=== PATIENT | female | born 1955 | race Caucasian/White ===

== ENCOUNTER → 2022-10-16 08:38 | Outpatient (BNVA) | payer MEDICARE, MEDICAID, SELFPAY | PROVIDERS: PCP Internal Medicine; Visit Provider Student in an Organized Health Care Education/Training Program | DX: M47.819 Spondylosis without myelopathy or radiculopathy, site unspecified (principal); Z79.631 Long term (current) use of antimetabolite agent | CPT/HCPCS: 99202 ==

== ENCOUNTER 2023-01-09 07:55 | Outpatient (REF) | payer MEDICARE, MEDICAID, SELFPAY ==
[2023-01-09 10:43] LABS: MANUAL DIFF FLAG NO
[2023-01-09 10:53] LABS: Basophils Absolute Auto 0.1 X10*3/uL (0.0-0.2); Eosinophils Percent Auto 0.4 % (0-4); Hematocrit 38.7 % (37.0-47.0); Hemoglobin 13.1 g/dl (12.0-16.0); Imm Gran Abs Auto 0.01 X10*3/uL (0.00-0.03); Imm Gran Pct Auto 0.2 % (0.0-0.4); Lymphocytes Absolute Auto 1.8 X10*3/uL (1.2-4.9); Lymphocytes Percent Auto 35.2 % (20-40); Mean Corpuscular HGB Conc 33.9 g/dl (31.0-35.0); Mean Corpuscular Hemoglobin 31.8 pg (27.0-33.0); Mean Corpuscular Volume 93.9 fL (80.0-98.0); Mean Platelet Volume 10.2 fL (9.4-12.3); Monocytes Absolute Auto 0.5 X10*3/uL (0.1-1.2); Monocytes Percent Auto 8.9 % (2-11); Neutrophils Absolute Auto 2.7 x10*3/uL (2.0-8.3); Neutrophils Percent Auto 54.3 % (45-73); Platelet Count 258 X10*3/uL (160-400); Red Blood Count 4.12 X10*6/uL (4.20-5.50); Red Cell Distribution Width 13.1 % (11.0-16.0); White Blood Count 5.1 X10*3/uL (4.8-10.8)
[2023-01-09 11:25] LABS: Alanine Aminotransferase 28 U/L (0-31); Albumin Level 4.4 g/dL (3.5-5.0); Alkaline Phosphatase 82 U/L (39-117); Anion Gap 13 (12-20); Aspartate Amino Transferase 26 U/L (5-31); Bilirubin Total 0.9 mg/dL (0.0-1.0); Blood Urea Nitrogen 14 mg/dL (9-16); C Reactive Protein 0.27 mg/dL (< or = 0.50); Calcium 9.6 mg/dL (8.4-10.2); Carbon Dioxide 27 mmol/L (22-29); Chloride 103 mmol/L (96-108); Estimated Glomerular Filt Rate > 60; Glucose Random 141 mg/dL (60-115); Potassium 4.6 mmol/L (3.3-5.1); Sodium 138 mmol/L (135-145); Total Protein 6.7 g/dL (6.5-8.0)
[2023-01-09 11:32] LABS: Erythrocyte Sedimentation Rate 11 MM/HR (0-20)
[2023-01-10 08:39] LABS: HBS Num1 6.57 mIU/mL (0-7.99); HBc Num1 0.07 S/CO (0.00-0.79); HBsAGNum1 0.26 S/CO (0.00-0.99); Hepatitis A Antibody IgM 0.14 Index (0-0.79); Hepatitis B Core Antibody Nonreactive (Nonreactive); Hepatitis B Surface Antigen Negative (Negative); ~HepC Num1 0.09 S/CO (0.00-0.79); ~Hepatitis A Antibody IgM Nonreactive (Nonreactive); ~Hepatitis B Surface Antibody NONREACTIVE (Nonreactive); ~Hepatitis C Antibody Nonreactive (Nonreactive)
[2023-01-11 16:54] LABS: TS Negative Control Passed; TS Panel A 0; TS Panel B 0; TS Positive Control Passed; TSpotTB Negative (Negative)
== END 2023-01-09 07:56 | disposition home or self-care (01) ==
LOC: HO.10HDL 07:55
PROVIDERS: Visit Provider Student in an Organized Health Care Education/Training Program
DX: M47.819 Spondylosis without myelopathy or radiculopathy, site unspecified (principal); Z11.7 Encounter for testing for latent tuberculosis infection; Z79.631 Long term (current) use of antimetabolite agent; Z11.59 Encounter for screening for other viral diseases; Z72.89 Other problems related to lifestyle
CPT/HCPCS: 36415; 80053; 85025; 85652; 86140; 86481; 86704; 86706; 86709; 86803; 87340

== ENCOUNTER → 2023-01-14 08:49 | Outpatient (BNVA) | payer MEDICARE, MEDICAID, SELFPAY | PROVIDERS: PCP Internal Medicine; Visit Provider Student in an Organized Health Care Education/Training Program | DX: M47.819 Spondylosis without myelopathy or radiculopathy, site unspecified (principal); M48.02 Spinal stenosis, cervical region | CPT/HCPCS: 99212 ==

== ENCOUNTER → 2023-01-22 10:48 | Outpatient (BNVA) | payer MEDICARE, MEDICAID, SELFPAY | PROVIDERS: PCP Internal Medicine; Visit Provider Student in an Organized Health Care Education/Training Program | DX: M17.11 Unilateral primary osteoarthritis, right knee (principal) | CPT/HCPCS: 20610; 99212 ==

== ENCOUNTER 2023-05-16 10:07 | Outpatient (AMB) | payer MEDICARE, MEDICAID, SELFPAY ==
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
[2023-05-16 10:12] VITALS: BP 132/92; PULSE 75; TEMP 36; O2SAT 97; BMI 32.1
== END 2023-05-16 11:22 | disposition home or self-care (01) ==
PROVIDERS: PCP Internal Medicine; Visit Provider Student in an Organized Health Care Education/Training Program
DX: M47.819 Spondylosis without myelopathy or radiculopathy, site unspecified (principal); M23.92 Unspecified internal derangement of left knee; M79.7 Fibromyalgia
CPT/HCPCS: 99214

== ENCOUNTER → 2023-05-16 10:07 | Outpatient (BNVA) | payer MEDICARE, MEDICAID, SELFPAY | PROVIDERS: PCP Internal Medicine; Visit Provider Student in an Organized Health Care Education/Training Program | DX: M47.819 Spondylosis without myelopathy or radiculopathy, site unspecified (principal); M23.92 Unspecified internal derangement of left knee; M79.7 Fibromyalgia | CPT/HCPCS: 99212 ==

== ENCOUNTER 2023-07-08 10:22 | Outpatient (AMB) | payer MEDICARE, MEDICAID, SELFPAY ==
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
[2023-07-08 10:31] VITALS: BP 132/74; PULSE 75; TEMP 36.3; O2SAT 98; BMI 31.0
== END 2023-07-08 10:55 | disposition home or self-care (01) ==
PROVIDERS: PCP Internal Medicine; Visit Provider Student in an Organized Health Care Education/Training Program
DX: M47.819 Spondylosis without myelopathy or radiculopathy, site unspecified (principal); M79.7 Fibromyalgia; M17.12 Unilateral primary osteoarthritis, left knee; Z79.631 Long term (current) use of antimetabolite agent; Z13.820 Encounter for screening for osteoporosis
CPT/HCPCS: 99215

== ENCOUNTER → 2023-07-08 10:22 | Outpatient (BNVA) | payer MEDICARE, MEDICAID, SELFPAY | PROVIDERS: PCP Internal Medicine; Visit Provider Student in an Organized Health Care Education/Training Program | DX: M47.819 Spondylosis without myelopathy or radiculopathy, site unspecified (principal); M79.7 Fibromyalgia; M17.12 Unilateral primary osteoarthritis, left knee; Z79.631 Long term (current) use of antimetabolite agent | CPT/HCPCS: 99212 ==

== ENCOUNTER 2023-10-09 10:29 | Outpatient (AMB) | payer MEDICARE, MEDICAID, SELFPAY ==
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
[2023-10-09 10:33] VITALS: BP 122/80; PULSE 86; TEMP 36.1; O2SAT 98
== END 2023-10-09 11:14 | disposition home or self-care (01) ==
PROVIDERS: PCP Internal Medicine; Visit Provider Student in an Organized Health Care Education/Training Program
DX: M47.819 Spondylosis without myelopathy or radiculopathy, site unspecified (principal); M79.7 Fibromyalgia; M17.12 Unilateral primary osteoarthritis, left knee; Z79.631 Long term (current) use of antimetabolite agent; Z13.820 Encounter for screening for osteoporosis; Z71.85 Encounter for immunization safety counseling
CPT/HCPCS: 99215

== ENCOUNTER → 2023-10-09 10:29 | Outpatient (BNVA) | payer MEDICARE, MEDICAID, SELFPAY | PROVIDERS: PCP Internal Medicine; Visit Provider Student in an Organized Health Care Education/Training Program | DX: M47.819 Spondylosis without myelopathy or radiculopathy, site unspecified (principal); M79.7 Fibromyalgia; M17.12 Unilateral primary osteoarthritis, left knee; Z79.631 Long term (current) use of antimetabolite agent; Z13.820 Encounter for screening for osteoporosis; Z71.85 Encounter for immunization safety counseling | CPT/HCPCS: 99212 ==

== ENCOUNTER 2024-01-13 09:33 | Outpatient (REF) | payer MEDICARE, MEDICAID, SELFPAY ==
--- NOTE | ~2024-01-13 | XR_ITS ---
EXAM: X-RAYS BILATERAL HANDS CLINICAL INFORMATION: Spondylosis without myelopathy or radiculopathy, right wrist pain and left hand pain. TECHNIQUE: 4 views of each hand/wrist. COMPARISON: None. FINDINGS: RIGHT HAND/WRIST: Radiopaque marker placed by technologist to indicate area of concern as indicated by patient had ulnar aspect of wrist. Bones are diffusely demineralized. [id number] degenerative changes in the first carpometacarpal joint with joint space narrowing and hypertrophic change. Degenerative changes with hypertrophic change and joint space narrowing in the DIP joints most severe in the second DIP joint with associated soft tissue swelling. LEFT HAND/WRIST: Bones are diffusely demineralized. Severe degenerative changes in the first carpometacarpal joint with joint space narrowing and hypertrophic change. Degenerative changes with hypertrophic change and joint space narrowing in the DIP joints most advanced in the second, third and fourth DIP joints. XR/XR hand wrist LT IMPRESSION: 1. [id number] degenerative changes bilateral first carpometacarpal joints. 2. Degenerative changes bilateral DIP joints most severe in the right second DIP joint with associated soft tissue swelling. 3. Recommend follow up imaging in 10-14 days if fracture is suspected.
--- NOTE | ~2024-01-13 | XR_ITS ---
EXAM: X-RAYS BILATERAL HANDS CLINICAL INFORMATION: Spondylosis without myelopathy or radiculopathy, right wrist pain and left hand pain. TECHNIQUE: 4 views of each hand/wrist. COMPARISON: None. FINDINGS: RIGHT HAND/WRIST: Radiopaque marker placed by technologist to indicate area of concern as indicated by patient had ulnar aspect of wrist. Bones are diffusely demineralized. [id number] degenerative changes in the first carpometacarpal joint with joint space narrowing and hypertrophic change. Degenerative changes with hypertrophic change and joint space narrowing in the DIP joints most severe in the second DIP joint with associated soft tissue swelling. LEFT HAND/WRIST: Bones are diffusely demineralized. Severe degenerative changes in the first carpometacarpal joint with joint space narrowing and hypertrophic change. Degenerative changes with hypertrophic change and joint space narrowing in the DIP joints most advanced in the second, third and fourth DIP joints. XR/XR hand wrist RT IMPRESSION: 1. [id number] degenerative changes bilateral first carpometacarpal joints. 2. Degenerative changes bilateral DIP joints most severe in the right second DIP joint with associated soft tissue swelling. 3. Recommend follow up imaging in 10-14 days if fracture is suspected.
== END 2024-01-13 09:34 | disposition home or self-care (01) ==
LOC: HO.XRAY 09:33
PROVIDERS: PCP Internal Medicine; Visit Provider Student in an Organized Health Care Education/Training Program
DX: M54.9 Dorsalgia, unspecified (principal); M47.819 Spondylosis without myelopathy or radiculopathy, site unspecified; M79.7 Fibromyalgia; M17.12 Unilateral primary osteoarthritis, left knee; Z79.631 Long term (current) use of antimetabolite agent
CPT/HCPCS: 73110; 73130; 99212

== ENCOUNTER 2024-01-13 09:33 | Outpatient (AMB) | payer MEDICARE, MEDICAID, SELFPAY ==
--- NOTE | 2024-01-13 09:34 | A.OFFVIS_ITS ---
Intake Vital Signs 01/13/24 09:38 Height 5 ft 5 in BMI Reason not done Patient refused/unable BP 134/70 Blood Pressure Location Rt brachial Position Sitting Pulse 83 Pulse Source Pulse Oximeter Pulse Oximetry (%) 97 Oxygen Delivery Method Room Air Comment Pt states she is 185 lbs Intake Visit Reasons: ASPA Intake Note: Patient last seen 10/09/23 presents today for follow up and test results. Recreational Vehicle Repairer Required: No Accompanied by: Self / Same As Patient Allergies acetaminophen [From Percocet] Adverse Reaction (Severe, Verified 01/13/24 09:47) Headache oxycodone [From Percocet] Adverse Reaction (Severe, Verified 01/13/24 09:47) Headache Tetanus Vaccines and Toxoid Adverse Reaction (Severe, Verified 01/13/24 09:47) Anaphylaxis citalopram [From Celexa] Adverse Reaction (Intermediate, Verified 01/13/24 09:47) Thrush lisinopril Adverse Reaction (Intermediate, Verified 01/13/24 09:47) Cough ciprofloxacin [From Cipro] Adverse Reaction (Verified 01/13/24 09:47) Thrush Medication List - Last Reconciled 01/13/24 by Shani Reyes MD diclofenac potassium 50 mg PO DAILY PRN docusate sodium 200 mg PO DAILY duloxetine 20 mg PO DAILY epinephrine (EpiPen) 0.3 mg IM Q4H PRN folic acid 3 mg (3 x 1 mg) PO DAILY hydrocodone-acetaminophen 5-325 mg 1 tab PO Q6H PRN leucovorin calcium 10 mg (2 x 5 mg) PO QWEEK levothyroxine 75 mcg PO DAILY methotrexate sodium 20 mg (8 x 2.5 mg) PO QWEEK olmesartan (Benicar) 20 mg PO DAILY omega-3 fatty acids (Super [place]-3) 1,000 mg PO BID omeprazole 20 mg PO BID spironolactone 50 mg PO BID HPI HPI Comments History of Present Illness Details 68 year old female with 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 She states that she has not been doing well recently. She increased her methotrexate to 8 tabs weekly for about a month. She has not felt any improvement. She continues to have intermittent joint pain, usually associated with overuse such as working in the yd. She has been having right wrist pain as well as intermittent pain and swelling of her ankle, pain in the back of her left knee as well as shoulder pain. She states that diclofenac does not help as well as prednisone. Initial history: This is a 67-year-old female with a past medical history of HLA B27 positive spondyloarthropathy presents as a new patient. Her previous mandolin repairer left the practice. Her symptoms started before 2010 with diffuse body pain. The majority of her symptoms were on the right side affecting her right ankle, right hip, collarbone, ribs, shoulders and hand. She was eventually diagnosed with HLA B27 positive spondyloarthropathy in 2010. She was on sulfasalazine but stopped due to allergic reaction. She was also on Humira which worked from sub time then stopped working. She also received 1 Remicade infusion and could not tolerate it. She had been on methotrexate for several years now and symptoms are well controlled. Patient stated she had an injury to her right ankle as a child and since then she had had problems with her right foot. She was evaluated by cork slabs sawyer and had reconstructive surgery of her right foot. She states that the surgery helped for sometime however she is starting to have some worsening deformities of her toes, her toes are turning, states that her right foot is almost always numb PFSH Medical History Osteoarthritis of right knee Hypertension Fibromyalgia, primary Nolan's thyroiditis Spondyloarthropathy Surgical History H/O hand surgery Status post right foot surgery Hx of section Family History Mother Diabetes Father No problems noted. 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 Review of Systems ENT Denies sore throat Musc Reports arthralgias, Reports joint swelling and Reports stiffness Physical Exam Vital Signs: Last Vital Signs Pulse 83 01/13/24 09:38 BP 134/70 01/13/24 09:38 Pulse Ox 97 01/13/24 09:38 Oxygen Delivery Method Room Air 01/13/24 09:38 Const General: cooperative, healthy appearing, comfortable and no acute distress Nutritional Appearance: obese Limitations: no limitations HEENT Head: Yes normocephalic and Yes atraumatic Resp Effort & Inspection: normal respiratory effort and able to speak in complete sentences Auscultation: clear to auscultation bilaterally Cardio Rate: regular rate Rhythm: regular rhythm GI Inspection: No distended Palpation (GI): Soft to palpation and nontender Skin General skin exam: no rashes or lesions noted Extrem Other: left knee pain with flexion, no swelling or warmth Bilateral shoulder stiffness with full abduction Negative rotator cuff provocative maneuvers Tenderness to palpation of the right ulnar styloid, no significant swelling There is pain with range of motion of right wrist Mild soft tissue swelling of Dr. Aspect of right lateral malleolus but no warmth or erythema Assessment & Plan Assessment & Plan (1) Spondyloarthropathy: Comment: +ve HLA b27 Diagnosed 2010 SSZ discontinued due to allergic reaction Was on Humira for some time then had secondary nonresponse MTX for several years Code(s): M47.819 - Spondylosis without myelopathy or radiculopathy, site unspecified Plan: This is a 68-year-old female with a past medical history of HLA B27 positive spondyloarthropathy who presents for follow-up. On methotrexate 20 mg weekly. Patient continues to have intermittent flare-ups affecting multiple joints such as right wrist, right ankle, left knee and both shoulders. Continues to have intermittent swelling. Will need to advance DMARDs. Discussed risks and benefits of Enbrel. Patient agreed to proceed. Will start prior authorization for Enbrel Continue with methotrexate 20 mg once weekly Patient gets recurrent mouth sores when she reduces her Leucovorin to 5 mg weekly. She should stay on leucovorin 10 mg weekly Continue folic acid 3 mg daily Labs before next visit in 3 months Infectious screening: Hepatitis panel and T spot - ve 2022 (2) Fibromyalgia, primary: Code(s): M79.7 - Fibromyalgia Plan: On duloxetine 20 mg daily prescribed by PCP (3) Osteoarthritis of left knee: Code(s): M17.12 - Unilateral primary osteoarthritis, left knee Qualifiers: Osteoarthritis type: primary Qualified Code(s): M17.12 - Unilateral primary osteoarthritis, left knee Plan: Managed by Orthopedics, received steroid injections in the past. Gel injections were considered and knee replacement was discussed. Currently per patient's knee pain is tolerable. 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, intermediate, current use: Code(s): Z79.631 - residential (current) use of antimetabolite agent Plan: Monitor safety labs (5) Screening for osteoporosis: Code(s): Z13.820 - Encounter for screening for osteoporosis Plan: DEXA was done last month but we could not retrieve the report. Plan I spent 46 minutes reviewing patient's chart, evaluating patient, ordering diagnostic workup, counseling patient and documenting in the chart Orders: Orders XR hand wrist LT Today M47.819 - Spondylosis without myelopathy or radiculopathy, site unspecified XR hand wrist RT Today M47.819 - Spondylosis without myelopathy or radiculopathy, site unspecified Complete Blood Count Auto Diff 3 Months M47.819 - Spondylosis without myelopathy or radiculopathy, site unspecified, Z79.631 - residential (current) use of antimetabolite agent Comprehensive Met. Panel 3 Months M47.819 - Spondylosis without myelopathy or radiculopathy, site unspecified, Z79.631 - residential (current) use of antimetabolite agent C Reactive Protein 3 Months M47.819 - Spondylosis without myelopathy or radiculopathy, site unspecified, Z79.631 - residential (current) use of antimetabolite agent Erythrocyte Sedimentation Rate 3 Months M47.819 - Spondylosis without myelopathy or radiculopathy, site unspecified, Z79.631 - proc tech (current) use of antimetabolite agent Coding Level of Care Code Est Pt Level 5 (62264) Diagnoses Spondyloarthropathy M47.819 Fibromyalgia, primary M79.7 Primary osteoarthritis of left knee M17.12 Osteoarthritis type: primary Methotrexate, intermediate, 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
[2024-01-13 09:38] VITALS: BP 134/70; PULSE 83; O2SAT 97
== END 2024-01-13 10:14 | disposition home or self-care (01) ==
LOC: HO.RHE 09:33
PROVIDERS: PCP Internal Medicine; Visit Provider Student in an Organized Health Care Education/Training Program
DX: M45.9 Ankylosing spondylitis of unspecified sites in spine (principal); M79.7 Fibromyalgia; M17.12 Unilateral primary osteoarthritis, left knee; Z79.631 Long term (current) use of antimetabolite agent; Z13.820 Encounter for screening for osteoporosis
CPT/HCPCS: 99215

== ENCOUNTER 2024-03-24 12:47 | Outpatient (AMB) | payer MEDICARE, MEDICAID, SELFPAY ==
[2024-03-24 12:55] VITALS: BP 144/60; PULSE 81; O2SAT 95; BMI 31.4
--- NOTE | 2024-03-24 12:55 | MHC.OFFVIS ---
Vital Signs 03/24/24 12:55 Height 5 ft 5 in Weight 188 lb 7.924 oz BMI 31.4 BP 144/60 H Blood Pressure Location Rt brachial Position Sitting Pulse 81 Pulse Source Pulse Oximeter Pulse Oximetry (%) 95 Oxygen Delivery Method Room Air Intake Visit Reasons: /cm Intake Note: Pt seen today for follow up. Reports she was seen at [facility] thought she was having stroke. She is seeing her PCP tomorrow. Care Team Coordinator Scheduler Required: No Accompanied by: Self / Same As Patient Allergies acetaminophen [From Percocet] Adverse Reaction (Severe, Verified 03/24/24 13:04) Headache oxycodone [From Percocet] Adverse Reaction (Severe, Verified 03/24/24 13:04) Headache Tetanus Vaccines and Toxoid Adverse Reaction (Severe, Verified 03/24/24 13:04) Anaphylaxis citalopram [From Celexa] Adverse Reaction (Intermediate, Verified 03/24/24 13:04) Thrush etanercept [From Enbrel] Adverse Reaction (Intermediate, Verified 03/24/24 16:22) Angioedema lisinopril Adverse Reaction (Intermediate, Verified 03/24/24 13:04) Cough ciprofloxacin [From Cipro] Adverse Reaction (Verified 03/24/24 13:04) Thrush Medication List - Last Reconciled 03/24/24 by Shani Reyes MD diclofenac potassium 50 mg PO TID PRN docusate sodium 200 mg PO DAILY duloxetine 20 mg PO DAILY Enbrel SureClick (etanercept) 50 mg subcut QWEEK NS epinephrine (EpiPen) 0.3 mg IM Q4H PRN folic acid 3 mg (3 x 1 mg) PO DAILY hydrocodone-acetaminophen 5-325 mg 1 tab PO Q6H PRN leucovorin calcium 10 mg (2 x 5 mg) PO QWEEK levothyroxine 75 mcg PO DAILY methotrexate sodium 20 mg (8 x 2.5 mg) PO QWEEK olmesartan (Benicar) 20 mg PO DAILY omega-3 fatty acids (Super [place]-3) 1,000 mg PO BID omeprazole 20 mg PO BID spironolactone 50 mg PO BID HPI Comments Details: 68 year old female with 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 Patient took Enbrel for approximately 1 month and felt so much better with her joints. However she started having multiple symptoms such as epigastric pain, dry mouth, tongue swelling and purple discoloration, palpitations. She called the office and I asked her to discontinue Enbrel. Last week patient went to the emergency room due to abrupt onset of right side of her scalp numbness, she also had an an episode of right hand pallor but purplish discoloration of her fingertips associated with numbness, this rapidly self-resolved, when she presented to the hospital, stroke /TIA was suspected, she was admitted overnight and had a brain MRI and was told it was normal. She was not started on any medication for stroke. She has a follow-up appointment with her PCP tomorrow. She states that she continues to have the scalp numbness. She states that her joints are doing reasonably well as she had bilateral shoulder injection a few weeks ago. She also had left knee gel injection a few weeks ago. She has not been using her diclofenac Initial history: This is a 67-year-old female with a past medical history of HLA B27 positive spondyloarthropathy presents as a new patient. 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 Her symptoms started before 2010 with diffuse body pain. The majority of her symptoms were on the right side affecting her right ankle, right hip, collarbone, ribs, shoulders and hand. She was eventually diagnosed with HLA B27 positive spondyloarthropathy in 2010. She was on sulfasalazine but stopped due to allergic reaction. She was also on Humira which worked from sub time then stopped working. She also received 1 Remicade infusion and could not tolerate it. She had been on methotrexate for several years now and symptoms are well controlled. Patient stated she had an injury to her right ankle as a child and since then she had had problems with her right foot. She was evaluated by roping machine tender and had reconstructive surgery of her right foot. She states that the surgery helped for sometime however she is starting to have some worsening deformities of her toes, her toes are turning, states that her right foot is almost always numb [facility] Medical History Osteoarthritis of right knee Hypertension Fibromyalgia, primary Nolan's thyroiditis Spondyloarthropathy Surgical History H/O hand surgery Status post right foot surgery Hx of section Family History (Updated 03/24/24 @ 16:25 by Shani Reyes MD) Mother Diabetes Father No problems noted. 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 Female Reproductive History Menstrual Total pregnancies: 1 Number of Living Children: 1 Review of Systems Musc Denies arthralgias, Denies joint swelling, Reports numbness and Denies stiffness Neuro Reports numbness Physical Exam Vital Signs: Last Vital Signs Pulse 81 03/24/24 12:55 BP 144/60 H 03/24/24 12:55 Pulse Ox 95 03/24/24 12:55 Oxygen Delivery Method Room Air 03/24/24 12:55 BMI result Body Mass Index 31.4 Const General: cooperative, healthy appearing, comfortable and no acute distress Nutritional Appearance: obese Limitations: no limitations HEENT Head: Yes normocephalic and Yes atraumatic Resp Effort & Inspection: normal respiratory effort and able to speak in complete sentences Auscultation: clear to auscultation bilaterally Cardio Rate: regular rate Rhythm: regular rhythm GI Inspection: No distended Palpation (GI): Soft to palpation and nontender Skin General skin exam: no rashes or lesions noted Extrem Other: Normal nailfold capillaroscopy No active synovitis today Assessment & Plan Assessment & Plan (1) Spondyloarthropathy: Comment: +ve HLA b27 Diagnosed 2010 SSZ discontinued due to allergic reaction Was on Humira for some time then had secondary nonresponse MTX for several years Enbrel 01/2024-DC 02/2024 Code(s): M47.819 - Spondylosis without myelopathy or radiculopathy, site unspecified Category: Medical Plan: This is a 68-year-old female with HLA B27 positive spondyloarthropathy who presents for follow-up. Patient started Enbrel and took it for approximately one-month with improvement however she developed multiple side effects such as epigastric pain, tongue swelling and redness, palpitations. I asked patient to discontinue it. She also presented to the ED due to right scalp numbness. Brain MRI did not show a stroke. She continues to have right scalp numbness. Patient's inflammatory arthritis is well controlled today, likely due to recent bilateral shoulder cortisone injections. Has not been using her diclofenac At this point we will DC TNF inhibitors. Advised patient to get evaluated by a neurologist I believe we should switch to 17 inhibitors such as Taltz. However I would like patient to get evaluated by Neurology 1st Continue with methotrexate 20 mg once weekly Patient gets recurrent mouth sores when she reduces her Leucovorin to 5 mg weekly. She should stay on leucovorin 10 mg weekly Continue folic acid 3 mg daily Labs before next visit in 3 months Infectious screening: Hepatitis panel and T spot - ve 2022 (2) Fibromyalgia, primary: Code(s): M79.7 - Fibromyalgia Category: Medical Plan: On duloxetine 20 mg daily prescribed by PCP (3) Osteoarthritis of left knee: Code(s): M17.12 - Unilateral primary osteoarthritis, left knee Category: Medical Qualifiers: Osteoarthritis type: primary Qualified Code(s): M17.12 - Unilateral primary osteoarthritis, left knee Plan: Managed by Orthopedics, received steroid injections in the past. She recently received gel injections by ortho 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, shelter, current use: Code(s): Z79.631 - terminal manager (current) use of antimetabolite agent Category: Medical Plan: Monitor safety labs (5) Screening for osteoporosis: Code(s): Z13.820 - Encounter for screening for osteoporosis Category: Medical Plan: DEXA 11/2023 showed normal bone density Plan I spent 46 minutes reviewing patient's chart, evaluating patient, ordering diagnostic workup, counseling patient and documenting in the chart Orders: Orders Complete Blood Count Auto Diff 3 Months M47.819 - Spondylosis without myelopathy or radiculopathy, site unspecified, Z79.631 - terminal manager (current) use of antimetabolite agent C Reactive Protein 3 Months M47.819 - Spondylosis without myelopathy or radiculopathy, site unspecified, Z79.631 - terminal manager (current) use of antimetabolite agent Comprehensive Met. Panel 3 Months M47.819 - Spondylosis without myelopathy or radiculopathy, site unspecified, Z79.631 - custodial (current) use of antimetabolite agent Erythrocyte Sedimentation Rate 3 Months M47.819 - Spondylosis without myelopathy or radiculopathy, site unspecified, Z79.631 - terminal manager (current) use of antimetabolite agent Medications: Discontinued Enbrel SureClick (etanercept) Discontinued Reason: Doctor's Order 50 mg subcut QWEEK 4 mL 2RF NS Coding Level of Care Code Est Pt Level 5 (01134) Complex EM visit Add On G2211 Diagnoses Spondyloarthropathy M47.819 Fibromyalgia, primary M79.7 Primary osteoarthritis of left knee M17.12 Osteoarthritis type: primary Methotrexate, rodent exterminator, 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
== END 2024-03-24 13:30 | disposition home or self-care (01) ==
PROVIDERS: PCP Internal Medicine; Visit Provider Student in an Organized Health Care Education/Training Program
DX: M47.819 Spondylosis without myelopathy or radiculopathy, site unspecified (principal); M79.7 Fibromyalgia; M17.12 Unilateral primary osteoarthritis, left knee; Z79.631 Long term (current) use of antimetabolite agent; Z13.820 Encounter for screening for osteoporosis
CPT/HCPCS: 99215; G2211

== ENCOUNTER → 2024-03-24 12:47 | Outpatient (BNVA) | payer MEDICARE, MEDICAID, SELFPAY | PROVIDERS: PCP Internal Medicine; Visit Provider Student in an Organized Health Care Education/Training Program | DX: M47.819 Spondylosis without myelopathy or radiculopathy, site unspecified (principal); M79.7 Fibromyalgia; M17.12 Unilateral primary osteoarthritis, left knee; Z79.631 Long term (current) use of antimetabolite agent | CPT/HCPCS: 99212 ==

== ENCOUNTER 2024-06-23 07:49 | Outpatient (AMB) | payer MEDICARE, MEDICAID, SELFPAY ==
--- NOTE | 2024-06-23 07:54 | MHC.OFFVIS ---
Vital Signs 06/23/24 07:59 Height 5 ft 5 in Weight 197 lb 5.019 oz BMI 32.8 BP 120/80 Blood Pressure Location Rt brachial Position Sitting Pulse 87 Pulse Source Pulse Oximeter Pulse Oximetry (%) 98 Oxygen Delivery Method Room Air Intake Visit Reasons: Intake Note: Patient presents for . Allergies acetaminophen [From Percocet] Adverse Reaction (Severe, Verified 06/23/24 07:58) Headache oxycodone [From Percocet] Adverse Reaction (Severe, Verified 06/23/24 07:58) Headache Tetanus Vaccines and Toxoid Adverse Reaction (Severe, Verified 06/23/24 07:58) Anaphylaxis citalopram [From Celexa] Adverse Reaction (Intermediate, Verified 06/23/24 07:58) Thrush etanercept [From Enbrel] Adverse Reaction (Intermediate, Verified 06/23/24 07:58) Angioedema lisinopril Adverse Reaction (Intermediate, Verified 06/23/24 07:58) Cough ciprofloxacin [From Cipro] Adverse Reaction (Verified 06/23/24 07:58) Thrush Medication List - Last Reconciled 06/23/24 by Shani Reyes MD Cosentyx Pen (secukinumab) 150 mg subcut Q4W NS diclofenac potassium 50 mg PO TID PRN docusate sodium 200 mg PO DAILY duloxetine 20 mg PO DAILY epinephrine (EpiPen) 0.3 mg IM Q4H PRN folic acid 3 mg (3 x 1 mg) PO DAILY hydrocodone-acetaminophen 5-325 mg 1 tab PO Q6H PRN leucovorin calcium 10 mg (2 x 5 mg) PO QWEEK levothyroxine 75 mcg PO DAILY methotrexate sodium 20 mg (8 x 2.5 mg) PO QWEEK olmesartan (Benicar) 20 mg PO DAILY omega-3 fatty acids (Super [place]-3) 1,000 mg PO BID omeprazole 20 mg PO BID spironolactone 50 mg PO BID HPI Comments Details: 68 year old female with 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 She started the loading dose of Cosentyx about a month ago. She has not had any side effects. She has not noticed any improvement. She remains on methotrexate 20 mg weekly. She has been having left knee pain as well as bilateral shoulder pain. 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 She had a gel shot in her left knee in February and states that it was helpful. Her shoulders are getting worse and she will be going to see her orthopedist soon for an injection. Initial history: This is a 67-year-old female with a past medical history of HLA B27 positive spondyloarthropathy presents as a new patient. Her previous review coordinator left the practice. Her symptoms started before 2010 with diffuse body pain. The majority of her symptoms were on the right side affecting her right ankle, right hip, collarbone, ribs, shoulders and hand. She was eventually diagnosed with HLA B27 positive spondyloarthropathy in 2010. She was on sulfasalazine but stopped due to allergic reaction. She was also on Humira which worked from sub time then stopped working. She also received 1 Remicade infusion and could not tolerate it. She had been on methotrexate for several years now and symptoms are well controlled. Patient stated she had an injury to her right ankle as a child and since then she had had problems with her right foot. She was evaluated by registration officer and had reconstructive surgery of her right foot. She states that the surgery helped for sometime however she is starting to have some worsening deformities of her toes, her toes are turning, states that her right foot is almost always numb [facility] Medical History Osteoarthritis of right knee Hypertension Fibromyalgia, primary Nolan's thyroiditis Spondyloarthropathy Surgical History H/O hand surgery Status post right foot surgery Hx of section Family History Mother Diabetes Father No problems noted. 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 Female Reproductive History Menstrual Total pregnancies: 1 Number of Living Children: 1 Review of Systems Musc Reports arthralgias, Denies joint swelling, Reports limited range of motion and Reports stiffness Physical Exam Vital Signs: Last Vital Signs Pulse 87 06/23/24 07:59 BP 120/80 06/23/24 07:59 Pulse Ox 98 06/23/24 07:59 Oxygen Delivery Method Room Air 06/23/24 07:59 BMI result Body Mass Index 32.8 Const General: cooperative, healthy appearing, comfortable and no acute distress Nutritional Appearance: obese Limitations: no limitations HEENT Head: Yes normocephalic and Yes atraumatic Resp Effort & Inspection: normal respiratory effort and able to speak in complete sentences Auscultation: clear to auscultation bilaterally Cardio Rate: regular rate Rhythm: regular rhythm GI Inspection: No distended Palpation (GI): Soft to palpation and nontender Skin General skin exam: no rashes or lesions noted Extrem Other: Able to fully abduct her shoulder but with some stiffness Bilateral shoulder crepitus Negative empty can test bilaterally Negative Speed's test bilaterally Normal nailfold capillaroscopy No active synovitis today Results Reviewed Results Reviewed: 0 Assessment & Plan Assessment & Plan (1) Spondyloarthropathy: Comment: +ve HLA b27 Diagnosed 2010 SSZ discontinued due to allergic reaction Was on Humira for some time then had secondary nonresponse MTX for several years Enbrel 01/2024-DC 02/2024 Angioedema Cosentyx 04/2024 Code(s): M47.819 - Spondylosis without myelopathy or radiculopathy, site unspecified Category: Medical Plan: This is a 68-year-old female with HLA B27 positive spondyloarthropathy who presents for follow-up. She is on methotrexate 20 mg weekly and Cosentyx started last month. She continues to complain of multiple joint pain especially her shoulders and her left knee. Today her symptoms are rather consistent with degenerative arthritis. Continue with methotrexate 20 mg once weekly Continue with Cosentyx She should stay on leucovorin 10 mg weekly Continue folic acid 3 mg daily Labs before next visit in 4 months Follow-up with orthopedist for shoulder osteoarthritis and knee osteoarthritis Infectious screening: Hepatitis panel and T spot - ve 2022 (2) Fibromyalgia, primary: Code(s): M79.7 - Fibromyalgia Category: Medical Plan: On duloxetine 20 mg daily prescribed by PCP (3) Osteoarthritis of left knee: Code(s): M17.12 - Unilateral primary osteoarthritis, left knee Category: Medical Qualifiers: Osteoarthritis type: primary Qualified Code(s): M17.12 - Unilateral primary osteoarthritis, left knee Plan: Managed by Orthopedics, received steroid injections in the past. received gel injections 02/2024 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, nursing home, current use: Code(s): Z79.631 - watermelon harvesting supervisor (current) use of antimetabolite agent Category: Medical Plan: Monitor safety labs (5) Screening for osteoporosis: Code(s): Z13.820 - Encounter for screening for osteoporosis Category: Medical Plan: DEXA 11/2023 showed normal bone density Plan I spent 46 minutes reviewing patient's chart, evaluating patient, ordering diagnostic workup, counseling patient and documenting in the chart Orders: Orders Erythrocyte Sedimentation Rate 3 Months M47.819 - Spondylosis without myelopathy or radiculopathy, site unspecified, Z79.631 - watermelon harvesting supervisor (current) use of antimetabolite agent Comprehensive Met. Panel 4 Months M47.819 - Spondylosis without myelopathy or radiculopathy, site unspecified, Z79.631 - watermelon harvesting supervisor (current) use of antimetabolite agent Complete Blood Count Auto Diff 3 Months M47.819 - Spondylosis without myelopathy or radiculopathy, site unspecified, Z79.631 - watermelon harvesting supervisor (current) use of antimetabolite agent Comprehensive Met. Panel 3 Months M47.819 - Spondylosis without myelopathy or radiculopathy, site unspecified, Z79.631 - assisted (current) use of antimetabolite agent C Reactive Protein 3 Months M47.819 - Spondylosis without myelopathy or radiculopathy, site unspecified, Z79.631 - watermelon harvesting supervisor (current) use of antimetabolite agent Complete Blood Count Auto Diff 4 Months M47.819 - Spondylosis without myelopathy or radiculopathy, site unspecified, Z79.631 - assisted (current) use of antimetabolite agent C Reactive Protein 4 Months M47.819 - Spondylosis without myelopathy or radiculopathy, site unspecified, Z79.631 - assisted (current) use of antimetabolite agent Erythrocyte Sedimentation Rate 4 Months M47.819 - Spondylosis without myelopathy or radiculopathy, site unspecified, Z79.631 - assisted (current) use of antimetabolite agent Coding Level of Care Code Est Pt Level 5 (26293) Complex EM visit Add On G2211 Diagnoses Spondyloarthropathy M47.819 Fibromyalgia, primary M79.7 Primary osteoarthritis of left knee M17.12 Osteoarthritis type: primary Methotrexate, nursing home, 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
[2024-06-23 07:59] VITALS: BP 120/80; PULSE 87; O2SAT 98; BMI 32.8
== END 2024-06-23 08:39 | disposition home or self-care (01) ==
PROVIDERS: PCP Internal Medicine; Visit Provider Student in an Organized Health Care Education/Training Program
DX: M47.819 Spondylosis without myelopathy or radiculopathy, site unspecified (principal); M79.7 Fibromyalgia; M17.12 Unilateral primary osteoarthritis, left knee; Z79.631 Long term (current) use of antimetabolite agent; Z13.820 Encounter for screening for osteoporosis
CPT/HCPCS: 99215; G2211

== ENCOUNTER → 2024-06-23 07:49 | Outpatient (BNVA) | payer MEDICARE, MEDICAID, SELFPAY | PROVIDERS: PCP Internal Medicine; Visit Provider Student in an Organized Health Care Education/Training Program | DX: Z13.820 Encounter for screening for osteoporosis (principal); M47.819 Spondylosis without myelopathy or radiculopathy, site unspecified; M17.12 Unilateral primary osteoarthritis, left knee; M79.7 Fibromyalgia; Z79.631 Long term (current) use of antimetabolite agent | CPT/HCPCS: 99212 ==

== ENCOUNTER 2024-10-06 12:37 | Outpatient (AMB) | payer MEDICARE, MEDICAID, SELFPAY ==
--- NOTE | 2024-10-06 12:56 | A.OFFVIS_ITS ---
Vital Signs 10/06/24 12:59 Height 5 ft 3 in Weight 200 lb BMI 35.4 BP 122/70 Blood Pressure Location Rt brachial Position Sitting Pulse 99 Pulse Source Pulse Oximeter Pulse Oximetry (%) 92 Oxygen Delivery Method Room Air Intake Visit Reasons: Intake Note: Patient presents for . Allergies acetaminophen [From Percocet] Adverse Reaction (Severe, Verified 10/06/24 12:59) Headache oxycodone [From Percocet] Adverse Reaction (Severe, Verified 10/06/24 12:59) Headache Tetanus Vaccines and Toxoid Adverse Reaction (Severe, Verified 10/06/24 12:59) Anaphylaxis citalopram [From Celexa] Adverse Reaction (Intermediate, Verified 10/06/24 12:59) Thrush etanercept [From Enbrel] Adverse Reaction (Intermediate, Verified 10/06/24 12:59) Angioedema lisinopril Adverse Reaction (Intermediate, Verified 10/06/24 12:59) Cough secukinumab [From Cosentyx] Adverse Reaction (Intermediate, Verified 10/06/24 13:35) Diarrhea ciprofloxacin [From Cipro] Adverse Reaction (Verified 10/06/24 12:59) Thrush Medication List - Last Reconciled 10/06/24 by Shani Reyes MD diclofenac potassium 50 mg PO TID PRN docusate sodium 200 mg PO DAILY duloxetine 20 mg PO DAILY epinephrine (EpiPen) 0.3 mg IM Q4H PRN folic acid 3 mg (3 x 1 mg) PO DAILY hydrocodone-acetaminophen 5-325 mg 1 tab PO Q6H PRN leucovorin calcium 10 mg (2 x 5 mg) PO QWEEK levothyroxine 75 mcg PO DAILY methotrexate sodium 20 mg (8 x 2.5 mg) PO QWEEK olmesartan (Benicar) 20 mg PO DAILY omega-3 fatty acids (Super [place]-3) 1,000 mg PO BID omeprazole 20 mg PO BID spironolactone 50 mg PO BID HPI Comments Details: 69 year old female with 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 She remains on methotrexate, Cosentyx was started 3-4 months ago. She states that since Cosentyx was started she has been feeling better, she no longer has the generalized pain and morning stiffness. She has noticed however that that she gets some mouth sores as well as significant diarrhea that lasts 3-4 days after the injection. She does not leave her house in those days. The day before , she fell outside her home while shoveling snow. She hit her wrists, her back and shoulder. Since then she has been having significant pain. She does not believe she fractured anything. Since that fall she has been having diffuse pain. Initial history: This is a 67-year-old female with a past medical history of HLA B27 positive spondyloarthropathy presents as a new patient. Her previous geoscience specialist left the practice. Her symptoms started before 2010 with diffuse body pain. The majority of her symptoms were on the right side affecting her right ankle, right hip, collarbone, ribs, shoulders and hand. She was eventually diagnosed with HLA B27 positive spondyloarthropathy in 2010. She was on sulfasalazine but stopped due to allergic reaction. She was also on Humira which worked from sub time then stopped working. She also received 1 Remicade infusion and could not tolerate it. She had been on methotrexate for several years now and symptoms are well controlled. Patient stated she had an injury to her right ankle as a child and since then she had had problems with her right foot. She was evaluated by steel division supervisor and had reconstructive surgery of her right foot. She states that the surgery helped for sometime however she is starting to have some worsening deformities of her toes, her toes are turning, states that her right foot is almost always numb PFSH Medical History Osteoarthritis of right knee Hypertension Fibromyalgia, primary Nolan's thyroiditis Spondyloarthropathy Surgical History H/O hand surgery Status post right foot surgery Hx of section Family History Mother Diabetes Father No problems noted. 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 Female Reproductive History Menstrual Total pregnancies: 1 Number of Living Children: 1 Review of Systems [facility] Reports arthralgias, Denies joint swelling, Reports limited range of motion and Reports stiffness Physical Exam Vital Signs: Last Vital Signs Pulse 99 10/06/24 12:59 BP 122/70 10/06/24 12:59 Pulse Ox 92 10/06/24 12:59 Oxygen Delivery Method Room Air 10/06/24 12:59 BMI result Body Mass Index 35.4 Const General: cooperative, healthy appearing, comfortable and no acute distress Nutritional Appearance: obese Limitations: no limitations HEENT Head: Yes normocephalic and Yes atraumatic Resp Effort & Inspection: normal respiratory effort and able to speak in complete sentences Auscultation: clear to auscultation bilaterally Cardio Rate: regular rate Rhythm: regular rhythm GI Inspection: No distended Palpation (GI): Soft to palpation and nontender Skin General skin exam: no rashes or lesions noted Extrem Other: Unable to fully abduct her shoulders due to significant stiffness Bilateral shoulder crepitus Bilateral deltoid and arm muscle tenderness Significantly limited left knee flexion Normal nailfold capillaroscopy No active synovitis today Assessment & Plan Assessment & Plan (1) Spondyloarthropathy: Comment: +ve HLA b27 Diagnosed 2010 SSZ discontinued due to allergic reaction Was on Humira for some time then had secondary nonresponse MTX for several years Enbrel 01/2024-DC 02/2024 Angioedema Cosentyx 04/2024 effective (discontinued 09/2024 due to significant diarrhea & + family hx of Crohn's) Code(s): M47.819 - Spondylosis without myelopathy or radiculopathy, site unspecified Category: Medical Plan: This is a 69-year-old female with HLA B27 positive spondyloarthropathy who presents for follow-up. She is on methotrexate 20 mg weekly and Cosentyx injections. Per patient she feels that Cosentyx significantly helped her generalized pain and morning stiffness however she has been having diarrhea that lasts 4 days after every injection. I think given new onset diarrhea coupled with patient's daughter with Crohn's I will discontinue Cosentyx for fear of developing inflammatory bowel disease CLAIRE inhibitors can be discussed if needed Continue with methotrexate 20 mg once weekly She should stay on leucovorin 10 mg weekly Continue folic acid 3 mg daily Labs before next visit in 4 months Follow-up with orthopedist for shoulder osteoarthritis and knee osteoarthritis Infectious screening: Hepatitis panel and T spot - ve 2022 (2) Fibromyalgia, primary: Code(s): M79.7 - Fibromyalgia Category: Medical Plan: Recently evaluated by sports Medicine advised to increase her duloxetine to 40 mg a day. Patient also believes that she may have slipped rib syndrome, advised patient to discuss with sports medicine (3) Osteoarthritis of left knee: Code(s): M17.12 - Unilateral primary osteoarthritis, left knee Category: Medical Qualifiers: Osteoarthritis type: primary Qualified Code(s): M17.12 - Unilateral primary osteoarthritis, left knee Plan: Managed by Orthopedics, received steroid injections in the past. received gel injections 02/2024, planned for another set of gel injections next month 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, retirement, current use: Code(s): Z79.631 - nursing home (current) use of antimetabolite agent Category: Medical Plan: Monitor safety labs (5) Screening for osteoporosis: Code(s): Z13.820 - Encounter for screening for osteoporosis Category: Medical Plan: DEXA 11/2023 showed normal bone density Plan I spent 46 minutes reviewing patient's chart, evaluating patient, ordering diagnostic workup, counseling patient and documenting in the chart Orders: Orders Complete Blood Count Auto Diff 4 Months M47.819 - Spondylosis without myelopathy or radiculopathy, site unspecified, Z79.631 - nursing home (current) use of antimetabolite agent Comprehensive Met. Panel 4 Months M47.819 - Spondylosis without myelopathy or radiculopathy, site unspecified, Z79.631 - nursing home (current) use of antimetabolite agent Erythrocyte Sedimentation Rate 4 Months M47.819 - Spondylosis without my elopathy or radiculopathy, site unspecified, Z79.631 - nursing home (current) use of antimetabolite agent C Reactive Protein 4 Months M47.819 - Spondylosis without myelopathy or radiculopathy, site unspecified, Z79.631 - exterminator helper termite (current) use of antimetabolite agent Medications: Refilled leucovorin calcium 10 mg (2 x 5 mg) PO QWEEK 24 tabs 1RF folic acid 3 mg (3 x 1 mg) PO DAILY 90 tabs 3RF Discontinued secukinumab (Cosentyx Pen) Discontinued Reason: Doctor's Order 150 mg subcut Q4W 1 mL 3RF M47.819 - Spondylosis without myelopathy or radiculopathy, site unspecified Coding Level of Care Code Est Pt Level 4 (74319) Complex EM visit Add On G2211 Diagnoses Spondyloarthropathy M47.819 Fibromyalgia, primary M79.7 Primary osteoarthritis of left knee M17.12 Osteoarthritis type: primary Methotrexate, retirement, 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
[2024-10-06 12:59] VITALS: BP 122/70; PULSE 99; O2SAT 92; BMI 35.4
== END 2024-10-06 13:37 | disposition home or self-care (01) ==
PROVIDERS: PCP Internal Medicine; Visit Provider Student in an Organized Health Care Education/Training Program
DX: M47.819 Spondylosis without myelopathy or radiculopathy, site unspecified (principal); M79.7 Fibromyalgia; M17.12 Unilateral primary osteoarthritis, left knee; Z79.631 Long term (current) use of antimetabolite agent; Z13.820 Encounter for screening for osteoporosis
CPT/HCPCS: 99214; G2211

== ENCOUNTER → 2024-10-06 12:37 | Outpatient (BNVA) | payer MEDICARE, MEDICAID, SELFPAY | PROVIDERS: PCP Internal Medicine; Visit Provider Student in an Organized Health Care Education/Training Program | DX: M47.819 Spondylosis without myelopathy or radiculopathy, site unspecified (principal); M79.7 Fibromyalgia; M17.12 Unilateral primary osteoarthritis, left knee; Z79.631 Long term (current) use of antimetabolite agent; Z13.820 Encounter for screening for osteoporosis | CPT/HCPCS: 99212 ==

== ENCOUNTER 2025-02-24 08:46 | Outpatient (AMB) | payer MEDICARE, MEDICAID, SELFPAY ==
--- OUTSIDE RECORDS SUMMARY | 2025-02-24 09:00 | XMS_ITS | Clinical Summary ---
Author Organization [facility] [place] [address] Care Team Providers Care Worker'S Compensation Claims Examiner Name Role Phone Anne Moreira MD Primary Care Provider [phone] Social History Tobacco Use Types Packs/Day Years Used Date Smoking Tobacco: Never Assessed Comments Unknown Sex and Gender Information Value Date Recorded Sex Assigned at Not on file Legal Sex Female 6:51 AM EST Gender Identity Not on file Sexual Orientation Not on file Plan of Treatment Health Maintenance Due Date Last Done Comments CT Colonography 1953 Colonoscopy 1953 Colorectal Cancer Screening 1953 FIT DNA 1953 FIT 1953 Sigmoidoscopy (10 year) with FIT yearly 1953 Sigmoidoscopy 1953 Hepatitis C Screening 1971 Tetanus/Diphtheria/Pertussis Vaccines (1 - Tdap) 1972 Breast Cancer Share Decision Needed 1993 Breast Cancer screening 1993 Pneumoccocal Vaccine: 50+ (1 of 1 - PCV) 2003 Zoster vaccine (1 of 2) 2003 Advance Directive 2008 Bone Density Scan 2018 Covid-19 Vaccine (3 season) 2024, 05/25/2021 Influenza (Flu) vaccine (1 o f 1 - Influenza standard series) 05/30/2024 Care Teams Worker'S Compensation Claims Examiner Relationship Specialty Start Date End Date Anne Moreira MD [address] [place] [address], [address] [place] [address] PCP - General 08/21/10
--- NOTE | 2025-02-24 09:02 | A.OFFVIS_ITS ---
Vital Signs 02/24/25 09:09 Height 5 ft 3 in Weight 197 lb 1.492 oz BMI 34.9 BP 124/90 H Blood Pressure Location Lt brachial Position Sitting Pulse 74 Pulse Source Pulse Oximeter Pulse Oximetry (%) 98 Oxygen Delivery Method Room Air Intake Visit Reasons: Intake Note: Patient presents for follow up. Allergies acetaminophen [From Percocet] Adverse Reaction (Severe, Verified 02/24/25 09:08) Headache oxycodone [From Percocet] Adverse Reaction (Severe, Verified 02/24/25 09:08) Headache Tetanus Vaccines and Toxoid Adverse Reaction (Severe, Verified 02/24/25 09:08) Anaphylaxis citalopram [From Celexa] Adverse Reaction (Intermediate, Verified 02/24/25 09:08) Thrush etanercept [From Enbrel] Adverse Reaction (Intermediate, Verified 02/24/25 09:08) Angioedema lisinopril Adverse Reaction (Intermediate, Verified 02/24/25 09:08) Cough secukinumab [From Cosentyx] Adverse Reaction (Intermediate, Verified 02/24/25 09:08) Diarrhea ciprofloxacin [From Cipro] Adverse Reaction (Verified 02/24/25 09:08) Thrush Medication List - Last Reconciled 02/24/25 by Lorri Yanes MD diclofenac potassium 50 mg PO TID PRN docusate sodium 200 mg PO DAILY epinephrine (EpiPen) 0.3 mg IM Q4H PRN folic acid 3 mg (3 x 1 mg) PO DAILY hydrocodone-acetaminophen 5-325 mg 1 tab PO Q6H PRN leucovorin calcium 10 mg (2 x 5 mg) PO QWEEK levothyroxine 75 mcg PO DAILY methotrexate sodium 20 mg (8 x 2.5 mg) PO QWEEK 90 days olmesartan (Benicar) 20 mg PO DAILY omega-3 fatty acids (Super [place]-3) 1,000 mg PO BID omeprazole 20 mg PO BID spironolactone 50 mg PO BID HPI Comments Details: Patient is a 69-year-old female with hypothyroidism, GERD, polyarticular osteoarthritis, and HLA B27 positive ankylosing spondylitis here today for follow up Interval History: Patient last seen 10/06/[address] Reyes. At that time she was following up for her HLA B27 positive spondyloarthropathy. She was on methotrexate and r ecently started Cosentyx. On this regimen she noted improvement in her symptoms including decreased generalized pain and morning stiffness. Unfortunately she fell about a month prior to that appointment and has been having significant diffuse pain since then. The Cosentyx was discontinued due to diarrhea 3 days after injections and her family history of Crohn's disease. Today, She states she is doing well on the methotrexate monotherapy Does note that she feels extra achy the day after a strenous day working on her property Rheumatologic History: Initial history: This is a 67-year-old female with a past medical history of HLA B27 positive spondyloarthropathy presents as a new patient. Her previous staff physical therapy assistant left the practice. Her symptoms started before 2010 with diffuse body pain. The majority of her symptoms were on the right side affecting her right ankle, right hip, collarbone, ribs, shoulders and hand. She was eventually diagnosed with HLA B27 positive spondyloarthropathy in 2010. She was on sulfasalazine but stopped due to allergic reaction. She was also on [employer] which worked from sub time then stopped working. She also received 1 Remicade infusion and could not tolerate it. She had been on methotrexate for several years now and symptoms are well controlled. Patient stated she had an injury to her right ankle as a child and since then she had had problems with her right foot. She was evaluated by livestock broker and had reconstructive surgery of her right foot. She states that the surgery helped for sometime however she is starting to have some worsening deformities of her toes, her toes are turning, states that her right foot is almost always numb Current Rheumatology Medication(s): Methotrexate 20mg once weekly Folic acid 3mg daily Leucovorin 10mg weekly [facility] Medical History Osteoarthritis of right knee Hypertension Fibromyalgia, primary Nolan's thyroiditis Spondyloarthropathy Surgical History H/O hand surgery Status post right foot surgery Hx of section Family History Mother Diabetes Father No problems noted. 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 Review of Systems Const Details: Review of Systems Constitutional: Denies fever, chills, weight loss ENT: Denies vision changes, eye pain or eye redness, dental caries, dry mouth GI: Denies nausea, vomiting, diarrhea, abdominal pain, change in BM Pulm: Denies SOB, PINO, hemoptysis, wheezing Cards: Denies chest pain, palpitations Skin: Denies Raynaud's, rash, nail changes, photosensitivity, OYSTER OPENER: Denies headaches, weakness, paresthesias, recurrent falls MSK: as per HPI All other systems reviewed and are unremarkable except noted above Physical Exam Vital Signs: Last Vital Signs Pulse 74 02/24/25 09:09 BP 124/90 H 02/24/25 09:09 Pulse Ox 98 02/24/25 09:09 Oxygen Delivery Method Room Air 02/24/25 09:09 BMI result Body Mass Index 34.9 Vital signs reviewed Physical Examination CONSTITUITIONAL Patient alert and cooperative. Well appearing and in no apparent painful distress HEENT Conjunctiva and sclera clear. ?Pupils equal round and reactive to light. ?No lymphadenopathy. ? CHEST/RESPIRATORY SYSTEM Normal respiratory effort and able to speak in complete sentences. ?Clear to auscultation bilaterally. ?No crackles, rales, rhonchi, wheezes heard. CARDIAC SYSTEM Regular rate and rhythm. ?S1 and S2 heard no murmurs. ?Radial pulses intact bilaterally MSK Hands: ?Able to make a fist. No synovitis noted to the MCPs, PIPs or DIPs. ?No tenderness to palpation of these joints. No deformities noted. ? Wrists: ?Full range of motion at the wrists without pain. ?No tenderness to palpation or synovitis noted to the wrists. Elbows: Full range of motion without pain. No tenderness, weakness, swelling, increased warmth or erythema. Shoulders: Full range of active range of motion without pain. No tenderness, weakness, swelling, increased warmth or erythema. Hips: Full range of motion without pain. Hip bursa: No tenderness to palpation Knees: ?Full range of motion. ?No tenderness, swelling, increased warmth or erythema.?No effusion or crepitations Ankles: Full range of motion. ?No tenderness, swelling, increased warmth or erythema.? Feet: ?Negative squeeze test. ?No tenderness to palpation or swelling of the MTPs. Tender points:?No tenderness to palpation of the bilateral trapezius, supraspinatus, greater trochanters, anterior costochondral junctions, bilateral gluteal areas, bilateral suboccipital muscle insertions SKIN Skin intact without rashes. Results Reviewed Results Reviewed: [facility] lab report reviewed 10/06/2024 ESR 11 CRP 2.1 AST/ALT /39 Creatinine 0.8 EGFR >60 Assessment & Plan Assessment & Plan (1) Spondyloarthropathy: Comment: +ve HLA b27 Diagnosed 2010 SSZ discontinued due to allergic reaction Was on Humira for some time then had secondary nonresponse MTX for several years Enbrel 01/2024-DC 02/2024 Angioedema Cosentyx 04/2024 effective (discontinued 09/2024 due to significant diarrhea & + family hx of Crohn's) Code(s): M47.819 - Spondylosis without myelopathy or radiculopathy, site unspecified Category: Medical Plan: #HLA B27 positive spondyloarthritis Patient is a 49-year-old female with HLA B27 positive spondyloarthritis here today for follow up. Doing well on methotrexate monotherapy Plan - Continue methotrexate 20mg weekly - Folic acid 3mg daily - Lecovorin 10mg weekly, 12 hours after MTx - Follow up labs - RTC 4 months - Labs before visit: CBC, CMP, ESR, CRP (2) Fibromyalgia, primary: Code(s): M79.7 - Fibromyalgia Category: Medical Plan: #Fibromyalgia Patient with fibromyalgia and stable Recommending patient due warm baths and stretches after doing a strenuous day outside working on her property (3) Osteoarthritis of left knee: Code(s): M17.12 - Unilateral primary osteoarthritis, left knee Category: Medical Qualifiers: Osteoarthritis type: primary Qualified Code(s): M17.12 - Unilateral primary osteoarthritis, left knee Plan: #OA of left knee Follows with ortho and gets gel injections. Knee is doing well (4) Screening for osteoporosis: Code(s): Z13.820 - Encounter for screening for osteoporosis Category: Medical Plan: #Screening for osteoporosis Patient with normal bone density 11/2023. Plan to repeat 11/2026 (5) Methotrexate, salvage determiner, current use: Code(s): Z79.631 - local intermodal truck driver (current) use of antimetabolite agent Category: Medical Plan: #Long-term Current Use of Methotrexate Discussed with patient the benefits and risks of methotrexate for managing their rheumatic condition Benefits include reduced pain, reduced mortality, maintenance of remission and reduction of flares Risks include oral ulcers, photosensitivity, hepatotoxicity, hematologic toxicity, pneumonitis, flu-like symptoms (especially day after administration), nodulosis, lymphomas ? Limit alcohol and avoid Bactrim ? Monitoring: ?CBC, BMP, LFTs every 3-4 months and hepatitis serologies as needed Plan I spent 30 minutes reviewing the record and labs, taking a history, examining the patient, discussing the treatment plan, ordering diagnostic work up and documenting in the medical record Orders: Orders Complete Blood Count Auto Diff 4 Months M47.819 - Spondylosis without myelopathy or radiculopathy, site unspecified Comprehensive Met. Panel 4 Months M47.819 - Spondylosis without myelopathy or radiculopathy, site unspecified C Reactive Protein 4 Months M47.819 - Spondylosis without myelopathy or radiculopathy, site unspecified Erythrocyte Sedimentation Rate 4 Months M47.819 - Spondylosis without myelopathy or radiculopathy, site unspecified Medications: Changed From leucovorin calcium refilled to next appointment on 02/24/25 10 mg (2 x 5 mg) PO QWEEK 14 tabs 0RF M47.819 - Spondylosis without myelopathy or radiculopathy, site unspecified To leucovorin calcium 10 mg (2 x 5 mg) PO QWEEK 90 days 26 tabs 1RF M47.819 - Spondylosis without myelopathy or radiculopathy, site unspecified Refilled folic acid 3 mg (3 x 1 mg) PO DAILY 90 tabs 1RF M47.819 - Spondylosis without myelopathy or radiculopathy, site unspecified methotrexate sodium 20 mg (8 x 2.5 mg) PO QWEEK 90 days 104 tabs 1RF M47.819 - Spondylosis without myelopathy or radiculopathy, site unspecified Coding Level of Care Code Est Pt Level 4 (46985) Complex EM visit Add On G2211 Diagnoses Spondyloarthropathy M47.819 Fibromyalgia, primary M79.7 Primary osteoarthritis of left knee M17.12 Osteoarthritis type: primary Screening for osteoporosis Z13.820 Methotrexate, snf, current use Z79.631
[2025-02-24 09:09] VITALS: BP 124/90; PULSE 74; O2SAT 98; BMI 34.9
== END 2025-02-24 09:42 | disposition home or self-care (01) ==
LOC: HO.RHE 08:46
PROVIDERS: PCP Internal Medicine; Visit Provider Student in an Organized Health Care Education/Training Program
DX: M47.819 Spondylosis without myelopathy or radiculopathy, site unspecified (principal); M79.7 Fibromyalgia; M17.12 Unilateral primary osteoarthritis, left knee; Z13.820 Encounter for screening for osteoporosis; Z79.631 Long term (current) use of antimetabolite agent
CPT/HCPCS: 99214; G2211

== ENCOUNTER → 2025-02-24 08:46 | Outpatient (BNVA) | payer MEDICARE, MEDICAID, SELFPAY | PROVIDERS: PCP Internal Medicine; Visit Provider Student in an Organized Health Care Education/Training Program | DX: M45.9 Ankylosing spondylitis of unspecified sites in spine (principal); M47.819 Spondylosis without myelopathy or radiculopathy, site unspecified; M79.7 Fibromyalgia; M17.12 Unilateral primary osteoarthritis, left knee; Z13.820 Encounter for screening for osteoporosis; Z79.631 Long term (current) use of antimetabolite agent | CPT/HCPCS: 99212 ==